=== PATIENT | female | born 1970 | race Caucasian/White ===

== ENCOUNTER 2018-07-28 17:45 | Emergency (ER) | payer OTHER ==
[2018-07-28 17:59] VITALS: TEMP 98.6
[2018-07-28] MEDS ORDERED: KETOROLAC TROMETHAMINE INJ 60 MG/2 ML VIAL IM ONE (18:12)
[2018-07-28] MEDS ORDERED: CYCLOBENZAPRINE HCL 10 MG TAB PO ONE (18:12)
--- NOTE | 2018-07-28 19:16 | ED.PDOC ---
History of Present Illness - General Chief Complaint: General Stated Complaint: pain in arms,tailbone and down both legs Time Seen by Provider: 07/28/18 18:11 Source: patient, family Exam Limitations: no limitations - History of Present Illness Initial Comments: patient comes in today for 1 day history of worsening back pain radiating down with weakness to both arms and legs Patient has no last of loss of bowel or bladder continence. She's had no fever or chills. Patient states she's hurt for years and has tried physical therapy and chiropractic treatment with only minimal improvement. However, the pain today was worse than her baseline and so she came in to see if anything else was going on. She denies any dysuria, fever, chills. She has chronic cough and underlying COPD from smoking. Patient has no nausea or vomiting. Timing/Duration: 24 hours Severity: severe Improving Factors: nothing Worsening Factors: movement Associated Symptoms: denies symptoms Allergies/Adverse Reactions: Allergies Sulfa Antibiotics Allergy (Unknown, Verified 07/28/18 17:56) Home Medications: Ambulatory Orders Cyclobenzaprine HCl [Flexeril] 10 mg PO TID #15 tab 07/28/18 Ibuprofen [Ibu] 800 mg PO TID PRN #20 tab 07/28/18 Review of Systems - Review of Systems Constitutional: States: no symptoms reported. Denies: chills, fever EENTM: States: no symptoms reported. Denies: blurred vision, ear pain, nose pain Respiratory: States: no symptoms reported. Denies: cough, short of breath Cardiology: States: no symptoms reported. Denies: chest pain, palpitations Gastrointestinal/Abdominal: States: no symptoms reported. Denies: abdominal pain, diarrhea Past Medical History (General) - Patient Medical History Hx Stroke: No Hx Congestive Heart Failure: No Hx Diabetes: No Surgical History: cholecystectomy, Hysterectomy - Vaccination History Hx Influenza Vaccination: No Hx Pneumococcal Vaccination: No - Social History Hx Tobacco Use: Yes Family Medical History - Family History Mother Family History: No Known Living Status: Still Living Physical Exam - Physical Exam General Appearance: Alert, Comfortable, No apparent distress Eye Exam: bilateral normal Ears, Nose, Throat: hearing grossly normal, normal ENT inspection, normal pharynx Neck: non-tender, full range of motion, supple, normal inspection Respiratory: chest non-tender, wheezing - occasional wheezing Cardiovascular/Chest: normal peripheral pulses, regular rate, rhythm, no edema, no murmur Peripheral Pulses: radial,right: 2+, radial,left: 2+ Gastrointestinal/Abdominal: normal bowel sounds, non tender, soft Back Exam: normal inspection, no CVA tenderness, muscle spasm - bilateral LS area paraspinal with L>R Extremity: normal range of motion, non-tender, normal inspection Neurologic: no motor/sensory deficits, alert, oriented x 3 DTR: 2+: Triceps, left, Triceps, right, Patellar, left, Patellar, right Progress - Progress Progress: 07/28/18 20:39 discussed with patient results of CT including kidney stone that does not appear to be causative of the pain but is present and diffuse vascular disease. Also discussed at length need to stop smoking and change diet before vascular event occurs. - Results/Orders Results/Orders: Laboratory Results WBC 9.0 K/mm3 (4.8-10.8) 07/28/18 18: RBC 4.74 M/mm3 (4.20-5.40) 07/28/18 18: Hgb 14.6 gm/dL (12.0-16.0) 07/28/18 18: Hct 42.8 % (36.0-47.0) 07/28/18 18: MCV 90.4 fl (81.0-99.0) 07/28/18 18: MCH 30.8 pg (27.0-31.0) 07/28/18 18: MCHC 34.1 g/dL (33.0-37.0) 07/28/18 18: RDW 13.3 % (11.5-14.5) 07/28/18 18: Plt Count 298 K/mm3 (130-400) 07/28/18 18: MPV 7.5 fl (7.40-10.4) 07/28/18 18:19 Absolute Neuts (auto) 5.40 K/uL (1.8-6.8) 07/28/18 18:19 Absolute Lymphs (auto) 2.40 K/uL (1.0-3.4) 07/28/18 18: Absolute Monos (auto) 0.60 K/uL (0.2-0.8) 07/28/18 18:19 Absolute Eos (auto) 0.50 K/uL (0.0-0.4) H 07/28/18 18:19 Absolute Basos (auto) 0.10 K/uL (0.0-0.1) 07/28/18 18:19 Neutrophils % 60.5 % (42.0-78.0) 07/28/18 18:19 Lymphocytes % 26.5 % (20.0-50.0) 07/28/18 18:19 Monocytes % 6.9 % (2.0-9.0) 07/28/18 18:19 Eosinophils % 5.1 % (1.0-5.0) H 07/28/18 18:19 Basophils % 1.0 % (0.0-2.0) 07/28/18 18:19 Sodium 140 mmol/L (135-145) 07/28/18 18:19 Potassium 3.7 mmol/L (3.6-5.0) 07/28/18 18:19 Chloride 111 mmol/L (101-111) 07/28/18 18:19 Carbon Dioxide 22 mmol/L (21-31) 07/28/18 18:19 Anion Gap 10.7 (12-18) L 07/28/18 18:19 BUN 21 mg/dL (7-18) H 07/28/18 18:19 Creatinine 1.05 mg/dL (0.6-1.3) 07/28/18 18:19 BUN/Creatinine Ratio 20.0 (10-20) 07/28/18 18:19 Random Glucose 102 mg/dL (70-105) 07/28/18 18:19 Serum Osmolality 282.6 mOsm/L (275-295) 07/28/18 18:19 Calcium 8.4 mg/dL (8.4-10.2) 07/28/18 18:19 Total Bilirubin 0.2 mg/dL (0.2-1.0) 07/28/18 18:19 AST 18 IU/L (10-42) 07/28/18 18:19 ALT 16 IU/L (10-60) 07/28/18 18:19 Alkaline Phosphatase 64 IU/L (42-121) 07/28/18 18:19 Serum Total Protein 6.7 gm/dL (6.4-8.2) 07/28/18 18:19 Albumin 3.0 g/dl (3.2-5.5) L 07/28/18 18:19 Globulin 3.7 gm/dL (2.3-3.5) H 07/28/18 18:19 Albumin/Globulin Ratio 0.8 (1.1-1.9) L 07/28/18 18:19 Urine Color Yellow (Yellow) 07/28/18 18:30 Urine Appearance Clear (Clear) 07/28/18 18:30 Urine pH 7.0 (4.5-7.8) 07/28/18 18:30 Ur Specific [place] 1.025 (1.005-1.030) 07/28/18 18:30 Urine Protein >=300 mg/dL H 07/28/18 18:30 Urine Glucose (UA) Negative mg/dL (Negative) 07/28/18 18:30 Urine Ketones Negative mg/dL (NEGATIVE) 07/28/18 18:30 Urine Blood Moderate (Negative) H 07/28/18 18:30 Urine Nitrite Negative 07/28/18 18:30 Urine Bilirubin Negative (NEGATIVE) 07/28/18 18:30 Urine Urobilinogen 0.2 mg/dL (0.2-1.0) 07/28/18 18:30 Ur Leukocyte Esterase Negative (Negative) 07/28/18 18:30 Urine RBC 5-10 /hpf H 07/28/18 18:30 Urine WBC 1-3 /hpf 07/28/18 18:30 Ur Epithelial Cells 0-1 /hpf 07/28/18 18:30 Amorphous Sediment 1+ 07/28/18 18:30 Urine Bacteria 0 07/28/18 18:30 Patient Name: ABAD TOMLIN Gender: Female Date of : 1970 Referring Physician: KARRIE PUENTES Organization: [facility] Accession Number: [id number] Requested Date: July 28, 2018 19:13 Report Status: Final Requested Procedure: 1 Procedure Description: Abdoment/Pelvis w/o Contrast Modality: CT Findings Reporting MD: Mat Brock Fellow MD: Not available Dictation Time: Route Inspector: Not available Corrugator Date: NONCONTRAST ABDOMEN AND PELVIC CT EXAMINATION. HISTORY: Hematuria. Back pain. Remote hysterectomy. COMPARISONS: No comparisons are available. PROCEDURE: Using helical technique, thin section axial images were performed through the abdomen and pelvis without the administration of intravenous or oral contrast material. FINDINGS: 3 mm nonobstructing left upper renal collecting system stone. The adrenal glands, kidneys, renal collecting systems, ureters and urinary bladder are otherwise grossly normal on this noncontrast examination. Mild descending colon and sigmoid colon diverticulosis without evidence of diverticulitis. The appendix is clearly visualized and appears normal. No calcified appendicolith. No evidence of appendicitis, inflammatory bowel disease, bowel obstruction, extraluminal bowel gas or retroperitoneal hemorrhage. No ascites, free pelvic fluid or evidence of intra-abdominal abscess on this noncontrast examination. Remote cholecystectomy. The liver, spleen, pancreas, stomach and duodenum are grossly normal on this noncontrast examination. Mild to moderate atherosclerotic calcification in the abdominal aorta and iliac arteries without aneurysm. Greatest AP diameter of the infrarenal abdominal aorta measures 1.8 cm. Moderate degenerative disease at the L4/L5 level without spondylolisthesis or facet joint dislocation. Suspect mild symmetric degenerative spinal canal stenosis at the L4/L5 level. Bones are otherwise normal for age. Lung bases are normal. IMPRESSION: 1. Calcified nonobstructing 3 mm left renal collecting system stone. No evidence of urinary system obstruction or pyelonephritis on this noncontrast examination. 2. Mild descending colon and sigmoid colon diverticulosis without diverticulitis. The appendix is clearly visualized and is normal. 3. No evidence of inflammatory bowel disease, bowel obstruction, [facility] [address] [place] [address], [address] [place] [address] T [phone] F [phone] [email or web address] - Report exported on July 28, 2018 20:36:12 -[id number] - Page 2 of 2 extraluminal bowel gas or intra-abdominal abscess. 4. Degenerative disease at the L4/L5 level with evidence of mild symmetric degenerative spinal canal stenosis. Bones appear otherwise normal for age. If clinical concern persists, post intravenous contrast and post oral contrast abdomen and pelvic CT examination should be performed for further evaluation. This exam was performed according to our departmental dose-optimization program, which includes automated exposure control, adjustment of the mA and/or kV according to patient size and/or use of iterative reconstruction technique. Electronically signed by: Mat Brock MD Departure - Departure Clinical Impression: Low back pain Qualifiers: Chronicity: chronic Back pain laterality: bilateral Sciatica presence: without sciatica Qualified Code(s): M54.5 - Low back pain; G89.29 - Other chronic pain Disposition: Discharge to Home or Self Care Condition: Good Departure Forms: ED Discharge - Pt. Copy, Patient Portal Self Enrollment Prescriptions: Cyclobenzaprine HCl [Flexeril] 10 mg PO TID #15 tab Ibuprofen [Ibu] 800 mg PO TID PRN #20 tab PRN Reason: Pain Home Medications: Ambulatory Orders Cyclobenzaprine HCl [Flexeril] 10 mg PO TID #15 tab 07/28/18 Ibuprofen [Ibu] 800 mg PO TID PRN #20 tab 07/28/18 Additional Instructions: work excuse for next 48 hours. Follow up with PCP on Tuesday to discuss PT vs Pain consult or chiropractor referral. RTER for increase in pain, change in sensation/weakness.
--- NOTE | 2018-07-28 20:17 | CT ---
NONCONTRAST ABDOMEN AND PELVIC CT EXAMINATION. HISTORY: Hematuria. Back pain. Remote hysterectomy. COMPARISONS: No comparisons are available. PROCEDURE: Using helical technique, thin section axial images were performed through the abdomen and pelvis without the administration of intravenous or oral contrast material. FINDINGS: 3 mm nonobstructing left upper renal collecting system stone. The adrenal glands, kidneys, renal collecting systems, ureters and urinary bladder are otherwise grossly normal on this noncontrast examination. Mild descending colon and sigmoid colon diverticulosis without evidence of diverticulitis. The appendix is clearly visualized and appears normal. No calcified appendicolith. No evidence of appendicitis, inflammatory bowel disease, bowel obstruction, extraluminal bowel gas or retroperitoneal hemorrhage. No ascites, free pelvic fluid or evidence of intra-abdominal abscess on this noncontrast examination. Remote cholecystectomy. The liver, spleen, pancreas, stomach and duodenum are grossly normal on this noncontrast examination. Mild to moderate atherosclerotic calcification in the abdominal aorta and iliac arteries without aneurysm. Greatest AP diameter of the infrarenal abdominal aorta measures 1.8 cm. Moderate degenerative disease at the L4/L5 level without spondylolisthesis or facet joint dislocation. Suspect mild symmetric degenerative spinal canal stenosis at the L4/L5 level. Bones are otherwise normal for age. Lung bases are normal. IMPRESSION: 1. Calcified nonobstructing 3 mm left renal collecting system stone. No evidence of urinary system obstruction or pyelonephritis on this noncontrast examination. 2. Mild descending colon and sigmoid colon diverticulosis without diverticulitis. The appendix is clearly visualized and is normal. 3. No evidence of inflammatory bowel disease, bowel obstruction, extraluminal bowel gas or intra-abdominal abscess. 4. Degenerative disease at the L4/L5 level with evidence of mild symmetric degenerative spinal canal stenosis. Bones appear otherwise normal for age. If clinical concern persists, post intravenous contrast and post oral contrast abdomen and pelvic CT examination should be performed for further evaluation. This exam was performed according to our departmental dose-optimization program, which includes automated exposure control, adjustment of the mA and/or kV according to patient size and/or use of iterative reconstruction technique. Electronically signed by: Mat Brock MD 07/28/2018 8:15 PM CDT
[2018-07-28 20:43] VITALS: BP 149/94; O2SAT 99
== END 2018-07-28 20:45 | disposition home or self-care (01) ==
LOC: ER 17:45
DX: M54.5 Low back pain (principal); G89.29 Other chronic pain; M47.817 Spondylosis without myelopathy or radiculopathy, lumbosacral region; N20.0 Calculus of kidney; K57.30 Diverticulosis of large intestine without perforation or abscess without bleeding; J44.9 Chronic obstructive pulmonary disease, unspecified; Z90.49 Acquired absence of other specified parts of digestive tract; Z79.899 Other long term (current) drug therapy; Z88.2 Allergy status to sulfonamides; Z87.891 Personal history of nicotine dependence
CPT/HCPCS: 36415; 74176; 80053; 81001; 85025; 87502; J1885

== ENCOUNTER 2018-08-08 19:46 | Emergency (ER) | payer OTHER ==
[2018-08-08] MEDS ORDERED: SODIUM CHLORIDE 0.9% 1000ML 1,000 ML IVS ONE (20:35)
[2018-08-08] MEDS ORDERED: ONDANSETRON INJ 4 MG/2 ML VIAL IV ONE (20:35)
--- NOTE | 2018-08-08 20:39 | ED.PDOC ---
History of Present Illness - General Chief Complaint: General Stated Complaint: feels "blah" weak Time Seen by Provider: 08/08/18 20:22 Source: patient Exam Limitations: no limitations - History of Present Illness Initial Comments: Pt began feeling dizzy, lightheaded, and nauseated around 6 pm today Timing/Duration: 1-3 hours, constant Severity: moderate Improving Factors: nothing Worsening Factors: movement Associated Symptoms: nausea/vomiting, weakness Allergies/Adverse Reactions: Allergies Sulfa Antibiotics Allergy (Unknown, Verified 07/28/18 17:56) Home Medications: Ambulatory Orders Cyclobenzaprine HCl [Flexeril] 10 mg PO TID #15 tab 07/28/18 Ibuprofen [Ibu] 800 mg PO TID PRN #20 tab 07/28/18 Ondansetron Odt [Zofran ODT] 4 mg PO Q6HR PRN #15 tab 08/08/18 Review of Systems - Review of Systems Constitutional: States: fever, malaise, weakness EENTM: States: no symptoms reported Respiratory: States: no symptoms reported Cardiology: States: no symptoms reported Gastrointestinal/Abdominal: States: diarrhea, nausea. Denies: abdominal pain, vomiting Genitourinary: Denies: dysuria, frequency Musculoskeletal: States: back pain - Chronic back pain Skin: States: no symptoms reported Neurological: States: no symptoms reported Endocrine: States: no symptoms reported Hematologic/Lymphatic: States: no symptoms reported Past Medical History (General) - Patient Medical History Hx Seizures: No Hx Stroke: No Hx Asthma: No Hx of COPD: Yes Hx Cardiac Disorders: No Hx Congestive Heart Failure: No Hx Pacemaker: No Hx Hypertension: No Hx Thyroid Disease: No Hx Diabetes: No Hx Gastroesophageal Reflux: Yes Hx Renal Disease: No Hx Cancer: Yes - cervical ca 25 years ago Hx of HIV: No Hx Hepatitis C: No Hx MRSA: No Surgical History: cholecystectomy, Hysterectomy - Vaccination History Hx Tetanus, Diphtheria Vaccination: No Hx Influenza Vaccination: No Hx Pneumococcal Vaccination: No Immunizations Up to Date: No - Social History Hx Tobacco Use: Yes Hx Chewing Tobacco Use: No Hx Alcohol Use: No Hx Substance Use: No Hx Substance Use Treatment: No Hx Depression: No Feels Threatened In Home Enviroment: No Feels Threatened In a Relationship: No Hx Physical Abuse: No Hx Emotional Abuse: No Hx Suspected Abuse: No - Activities of Daily Living Hospice Agency (if applicable):: None - Female History Patient is a Female of Child Bearing Age (10 -59 yrs old): No - hystorectomy - Triage Comment ED Triage Comment: pt AAOX4, and is able to communicate with staff and make needs known, Family Medical History - Family History Mother Family History: Unknown Living Status: Hx Family;Other: kidney ca Physical Exam - Physical Exam General Appearance: Alert, Lethargic Eye Exam: bilateral normal Ears, Nose, Throat: hearing grossly normal, normal ENT inspection Neck: non-tender, full range of motion, supple Respiratory: lungs clear, normal breath sounds Cardiovascular/Chest: normal peripheral pulses, regular rate, rhythm Gastrointestinal/Abdominal: normal bowel sounds, non tender, soft Back Exam: normal inspection, no CVA tenderness Extremity: normal range of motion, non-tender, normal inspection, no pedal edema Neurologic: alert, normal mood/affect, oriented x 3 Skin Exam: normal color, warm/dry Lymphatic: no adenopathy Progress - EKG/XRAY/CT CT Ordered: No Departure - Departure Clinical Impression: Orthostasis, Vasovagal symptom Disposition: Discharge to Home or Self Care Departure Forms: ED Discharge - Pt. Copy, Patient Portal Self Enrollment Referrals: Tami Sarkar NP [Primary Care Provider] - 1-2 Weeks Prescriptions: Ondansetron Odt [Zofran ODT] 4 mg PO Q6HR PRN #15 tab PRN Reason: Nausea Home Medications: Ambulatory Orders Cyclobenzaprine HCl [Flexeril] 10 mg PO TID #15 tab 07/28/18 Ibuprofen [Ibu] 800 mg PO TID PRN #20 tab 07/28/18 Ondansetron Odt [Zofran ODT] 4 mg PO Q6HR PRN #15 tab 08/08/18
[2018-08-08 22:03] VITALS: BP 119/67; TEMP 97.9; O2SAT 98
== END 2018-08-08 22:03 | disposition home or self-care (01) ==
LOC: ER 19:46
DX: I95.1 Orthostatic hypotension (principal); R11.2 Nausea with vomiting, unspecified; J44.9 Chronic obstructive pulmonary disease, unspecified; K21.9 Gastro-esophageal reflux disease without esophagitis; Z85.41 Personal history of malignant neoplasm of cervix uteri; Z87.891 Personal history of nicotine dependence; Z88.2 Allergy status to sulfonamides
CPT/HCPCS: 36416; 80053; 81001; 82948; 85025; J2405; J7030

== ENCOUNTER → 2018-10-19 | Outpatient (CLI) | payer OTHER ==
--- NOTE | 2018-10-19 09:43 | MRI ---
EXAM DESCRIPTION: Knee,Right CLINICAL HISTORY: RT KNEE PAIN COMPARISON: None Available. TECHNIQUE: MRI of the right knee is performed with multiplanar multi sequence imaging, without intravenous contrast. FINDINGS: Bone and joint: No focal bony contusion or acute fracture. Cartilage: Grade 3 chondral fissuring/chondrosis involving the medial knee compartment. Grade I chondromalacia of the lateral knee and patellofemoral compartments Medial meniscus: No displaced meniscal tear. Slight truncation of the anterior horn free edge may represent minimal free edge fraying. Lateral meniscus: Intact Anterior cruciate ligament: Intact Posterior cruciate ligament:Intact Medial collateral ligament:Intact Lateral collateral ligament:Intact Popliteus tendon: Intact Biceps femoris tendon: Intact Iliotibial band: Intact Medial and lateral retinaculum: Intact Extensor mechanism: Distal quadriceps and patellar tendons are intact. Soft tissues: Trace Bonner's cyst. No solid or cystic mass. IMPRESSION: Medial meniscus anterior horn/body mild free edge fraying. No displaced meniscal tear. Medial knee compartment intermediate grade chondromalacia. Electronically signed by: Kurtis Camara DO 10/19/2018 9:42 AM CDT
== END ==
LOC: MRI 08:22
PROVIDERS: ATTEND Nurse Practitioner Family
DX: M94.261 Chondromalacia, right knee (principal)

== ENCOUNTER 2019-09-02 20:50 | Emergency (ER) | payer SELFPAY ==
[2019-09-02 21:12] VITALS: TEMP 99.8
[2019-09-02] MEDS ORDERED: SODIUM CHLORIDE 0.9% 1000ML 1,000 ML IVS ONE (21:33)
[2019-09-02] MEDS ORDERED: SODIUM CHLORIDE 0.9% (FLUSH) 10 ML SYG IV PRN (21:33)
[2019-09-02] MEDS ORDERED: KETOROLAC TROMETHAMINE INJ 30 MG/ML VIAL IV ONE (21:34)
--- NOTE | 2019-09-02 22:09 | CT ---
EXAM: CT Abdomen and Pelvis Without Intravenous Contrast CLINICAL HISTORY: The patient is 49 years old and is Female; left flank pain. TECHNIQUE: Axial computed tomography images of the abdomen and pelvis without intravenous contrast. Sagittal and coronal reformatted images were created and reviewed. This CT exam was performed using one or more of the following dose reduction techniques: automated exposure control, adjustment of the mA and/or kV according to patient size, and/or use of iterative reconstruction technique. COMPARISON: No relevant prior studies available. FINDINGS: LUNG BASES: Unremarkable. No mass. No consolidation. ABDOMEN: LIVER: The liver is enlarged. Fatty infiltration at the falciform is present. GALLBLADDER AND BILE DUCTS: Surgical clips are present in the right upper quadrant, consistent with previous cholecystectomy. PANCREAS: Unremarkable. No ductal dilation. SPLEEN: Unremarkable. ADRENALS: Unremarkable. No mass. KIDNEYS AND URETERS: Mild left hydronephrosis and proximal hydroureter is present secondary to a 4 mm proximal left ureteral calculus. Edema of the left kidney with moderate perinephric and periureteral stranding is noted. The right kidney is normal. STOMACH AND BOWEL: The stomach is minimally distended with food contents. The small bowel is normal in caliber. Stool is present throughout colon. Scattered colonic diverticula are noted without surrounding inflammation. There is no mucosal thickening or evidence of bowel obstruction. PELVIS: APPENDIX: The appendix is normal in caliber without surrounding inflammation. BLADDER: The bladder is incompletely distended. No stones. REPRODUCTIVE: The patient is status post hysterectomy. ABDOMEN and PELVIS: INTRAPERITONEAL SPACE: Unremarkable. No free air. No significant fluid collection. BONES/JOINTS: Minimal degenerative change at L4-L5 is present. SOFT TISSUES: The soft tissues are normal. VASCULATURE: Atherosclerosis of the vasculature is present. No abdominal aortic aneurysm. LYMPH NODES: Unremarkable. No enlarged lymph nodes. IMPRESSION: Mild left hydronephrosis and proximal hydroureter is present secondary to a 4 mm proximal left ureteral calculus. Electronically signed by: Maggie Bonilla MD 09/02/2019 10:07 PM CDT
[2019-09-02] MEDS ORDERED: ACETAMINOPHEN W/COD #3 TAB 1 EA TAB PO ONE (23:00)
[2019-09-02] MEDS ORDERED: CIPROFLOXACIN 500 MG TAB PO ONE (23:00)
[2019-09-02] MEDS ORDERED: ONDANSETRON INJ 4 MG/2 ML VIAL IV ONE (23:01)
--- NOTE | 2019-09-02 23:08 | ED.PDOC ---
History of Present Illness - General Chief Complaint: General Stated Complaint: back and stomach pain Time Seen by Provider: 09/02/19 21:32 Source: patient, RN notes reviewed, Vital Signs reviewed, family - Daughter Exam Limitations: no limitations - History of Present Illness Initial Comments: Patient is a 49-year-old white female who started having left flank pain radiating to her abdomen this morning. Pain was waxing and waning in nature. It was moderate in intensity. Nothing seemed to make it better or worse. Timing/Duration: other - 12 hours Severity: moderate Improving Factors: nothing Worsening Factors: nothing Associated Symptoms: nausea/vomiting - Nausea only Allergies/Adverse Reactions: Allergies Sulfa Antibiotics Allergy (Unknown, Verified 07/28/18 17:56) Home Medications: Ambulatory Orders Cyclobenzaprine HCl [Flexeril] 10 mg PO TID #15 tab 07/28/18 Ibuprofen [Ibu] 800 mg PO TID PRN #20 tab 07/28/18 Ondansetron Odt [Zofran ODT] 4 mg PO Q6HR PRN #15 tab 08/08/18 Acetaminophen W/ Codeine [Tylenol W/ CODEINE #3] 1 tablet PO Q6H #16 09/03/19 Ciprofloxacin 500 mg PO BID #20 ml 09/03/19 Review of Systems - Review of Systems Constitutional: States: no symptoms reported, see HPI. Denies: chills, fever, weakness EENTM: States: no symptoms reported. Denies: eye pain, double vision, throat pain, throat swelling Respiratory: States: no symptoms reported. Denies: cough, short of breath, stridor, wheezing Cardiology: States: no symptoms reported. Denies: chest pain, palpitations, syncope Gastrointestinal/Abdominal: States: see HPI, abdominal pain, nausea. Denies: vomiting Genitourinary: States: no symptoms reported. Denies: discharge, dysuria, frequency Musculoskeletal: States: see HPI, back pain. Denies: joint pain, muscle pain, neck pain Skin: States: no symptoms reported. Denies: change in color, rash Neurological: States: no symptoms reported, tingling. Denies: tremors, weakness Endocrine: States: no symptoms reported Hematologic/Lymphatic: States: no symptoms reported All other Systems: Reviewed and Negative Past Medical History (General) - Patient Medical History Hx Seizures: No Hx Stroke: No Hx Asthma: No Hx of COPD: Yes Hx Cardiac Disorders: No Hx Congestive Heart Failure: No Hx Pacemaker: No Hx Hypertension: No Hx Thyroid Disease: Yes Hx Diabetes: No Hx Gastroesophageal Reflux: Yes Hx Renal Disease: No Hx Cancer: Yes - cervical Hx of HIV: No Hx Hepatitis C: No Hx MRSA: No Surgical History: cholecystectomy, Hysterectomy - Vaccination History Hx Tetanus, Diphtheria Vaccination: No Hx Influenza Vaccination: No Hx Pneumococcal Vaccination: No - Social History Hx Tobacco Use: Yes Hx Chewing Tobacco Use: No Hx Alcohol Use: Yes Hx Substance Use: No Hx Substance Use Treatment: No Hx Depression: No Hx Physical Abuse: No Hx Emotional Abuse: No Hx Suspected Abuse: No Family Medical History - Family History Mother Family History: Unknown Living Status: Hx Family;Other: kidney ca Physical Exam - Physical Exam General Appearance: Alert, Anxious, Obvious distress, Unkempt, Well Developed, Well Hydrated, Well Nourished Eye Exam: bilateral normal Ears, Nose, Throat: hearing grossly normal, normal ENT inspection, normal pharynx Neck: non-tender, full range of motion, supple, normal inspection Respiratory: chest non-tender, lungs clear, normal breath sounds, no respiratory distress, no accessory muscle use, respiratory distress Cardiovascular/Chest: normal peripheral pulses, regular rate, rhythm, no edema, no gallop, no JVD, no murmur Peripheral Pulses: radial,right: 2+, radial,left: 2+ Gastrointestinal/Abdominal: normal bowel sounds, non tender, soft Back Exam: no vertebral tenderness, CVA tenderness (R) Extremity: normal range of motion, non-tender, normal inspection, no pedal edema Neurologic: zmt operator II-XII nml as tested, no motor/sensory deficits, alert, normal mood/affect, oriented x 3 Skin Exam: normal color, warm/dry Lymphatic: no adenopathy Progress - Progress Progress: Differential diagnosis: Pyelonephritis, thoracic back strain, UTI, kidney stone among others. 09/02/19 23:53 Patient's pain has resolved after the IV Toradol. Patient has been given 1 Tylenol 3 which is also helped control the pain. Patient noted to have a mild UTI and was started on Cipro p.o. Patient's blood pressure has been good throughout. No signs of sepsis. Patient with a small 4 mm stone which should pass, but it is located in the proximal ureter. Plan on discharge home on Cipro and Tylenol 3 with follow-up with PCP for referral to nephrology. I discussed this plan of care with the patient she voices understanding and agreement with the plan of care. Patient is been given strong warnings to return to ED for worsening pain, fever, dizziness, shortness of breath or for any other reason. Skip Brandon M.D. #[id number] - Results/Orders Results/Orders: 09/02/19 20:58 Urine Culture Stat 09/02/19 21:33 Sodium Chloride 0.9% (Flush) [Saline Flush Syringe] 10 ml IV PRN PRN 09/02/19 21:34 IV Care:Saline Lock per Protoc QSHIFT Laboratory Results - last 24 hr 09/02/19 09/02/19 09/02/19 20:58 22:05 22:05 WBC 13.2 H RBC 4.83 Hgb 14.6 Hct 43.2 MCV 89.5 MCH 30.2 MCHC 33.8 RDW 13.7 Plt Count 310 MPV 7.9 Absolute Neuts (auto) 10.90 H Absolute Lymphs (auto) 1.10 Absolute Monos (auto) 1.00 H Absolute Eos (auto) 0.20 Absolute Basos (auto) 0.10 Neutrophils % 82.8 H Lymphocytes % 8.0 L Monocytes % 7.2 Eosinophils % 1.5 Basophils % 0.5 Sodium 139 Potassium 3.6 Chloride 106 Carbon Dioxide 24 Anion Gap 12.6 BUN 15 Creatinine 1.06 BUN/Creatinine Ratio 14.2 Random Glucose 106 H Serum Osmolality 278.8 Calcium 8.7 Total Bilirubin 0.4 Direct Bilirubin 0.1 Indirect Bilirubin 0.3 AST 46 H ALT 55 Alkaline Phosphatase 78 Serum Total Protein 7.1 Albumin 3.3 Lipase 24 Urine Color Yellow Urine Appearance Cloudy Urine pH 7.0 Ur Specific [place] 1.025 Urine Protein >=300 H Urine Glucose (UA) Negative Urine Ketones Negative Urine Blood Moderate H Urine Nitrite Positive H Urine Bilirubin Negative Urine Urobilinogen 0.2 Ur Leukocyte Esterase Small H Urine RBC 5-10 H Urine WBC >50 H Ur Epithelial Cells 1-3 Amorphous Sediment 2+ Urine Bacteria 1+ EXAM: CT Abdomen and Pelvis Without Intravenous Contrast CLINICAL HISTORY: The patient is 49 years old and is Female; left flank pain. TECHNIQUE: Axial computed tomography images of the abdomen and pelvis without intravenous contrast. Sagittal and coronal reformatted images were created and reviewed. This CT exam was performed using one or more of the following dose reduction techniques: automated exposure control, adjustment of the mA and/or kV according to patient size, and/or use of iterative reconstruction technique. COMPARISON: No relevant prior studies available. FINDINGS: LUNG BASES: Unremarkable. No mass. No consolidation. ABDOMEN: LIVER: The liver is enlarged. Fatty infiltration at the falciform is present. GALLBLADDER AND BILE DUCTS: Surgical clips are present in the right upper quadrant, consistent with previous cholecystectomy. PANCREAS: Unremarkable. No ductal dilation. SPLEEN: Unremarkable. ADRENALS: Unremarkable. No mass. KIDNEYS AND URETERS: Mild left hydronephrosis and proximal hydroureter is present secondary to a 4 mm proximal left ureteral calculus. Edema of the left kidney with moderate perinephric and periureteral stranding is noted. The right kidney is normal. STOMACH AND BOWEL: The stomach is minimally distended with food contents. The small bowel is normal in caliber. Stool is present throughout colon. Scattered colonic diverticula are noted without surrounding inflammation. There is no mucosal thickening or evidence of bowel obstruction. PELVIS: APPENDIX: The appendix is normal in caliber without surrounding inflammation. BLADDER: The bladder is incompletely distended. No stones. REPRODUCTIVE: The patient is status post hysterectomy. ABDOMEN and PELVIS: INTRAPERITONEAL SPACE: Unremarkable. No free air. No significant fluid collection. BONES/JOINTS: Minimal degenerative change at L4-L5 is present. SOFT TISSUES: The soft tissues are normal. VASCULATURE: Atherosclerosis of the vasculature is present. No abdominal aortic aneurysm. LYMPH NODES: Unremarkable. No enlarged lymph nodes. IMPRESSION: Mild left hydronephrosis and proximal hydroureter is present secondary to a 4 mm proximal left ureteral calculus. Electronically signed by: Maggie Bonilla MD 09/02/2019 10:07 PM Departure - Departure Clinical Impression: Ureterolithiasis, Hydroureter Urinary tract infection Qualifiers: Urinary tract infection type: acute cystitis Hematuria presence: without hematuria Qualified Code(s): N30.00 - Acute cystitis without hematuria Time of Disposition: 23:56 Disposition: Discharge to Home or Self Care Condition: Good Departure Forms: ED Discharge - Pt. Copy, Patient Portal Self Enrollment Instructions: Urinary Tract Infection, Adult (DC), Kidney Stones (DC) Diet: resume usual diet Activity: increase activity as tolerated Referrals: GHAZAL TREVINO MD [Referring] - 1-2 Days Benito Germain MD [Active Staff] - 1-5 Days Prescriptions: Acetaminophen W/ Codeine [Tylenol W/ CODEINE #3] 1 tablet PO Q6H #16 Ciprofloxacin 500 mg PO BID #20 ml Home Medications: Ambulatory Orders Cyclobenzaprine HCl [Flexeril] 10 mg PO TID #15 tab 07/28/18 Ibuprofen [Ibu] 800 mg PO TID PRN #20 tab 07/28/18 Ondansetron Odt [Zofran ODT] 4 mg PO Q6HR PRN #15 tab 08/08/18 Acetaminophen W/ Codeine [Tylenol W/ CODEINE #3] 1 tablet PO Q6H #16 09/03/19 Ciprofloxacin 500 mg PO BID #20 ml 09/03/19
[2019-09-03 00:11] VITALS: BP 132/78; O2SAT 96
== END 2019-09-03 00:21 | disposition home or self-care (01) ==
LOC: ER 20:50
DX: N20.1 Calculus of ureter (principal); N13.4 Hydroureter; N30.00 Acute cystitis without hematuria; J44.9 Chronic obstructive pulmonary disease, unspecified; R11.2 Nausea with vomiting, unspecified
CPT/HCPCS: 74176; 80048; 80076; 81001; 83690; 85025; 87086; A4216; J1885; J2405; J7030

== ENCOUNTER 2020-04-08 14:13 | Emergency (ER) | payer BC ==
--- NOTE | 2020-04-08 15:20 | RAD ---
EXAM DESCRIPTION: Chest,2 Views CLINICAL HISTORY: Cough COMPARISON: None Available. TECHNIQUE: Two-view radiograph of the chest FINDINGS: Cardiac silhouette shows normal heart size. Pulmonary vascularity is within normal limits. Lungs show no confluent infiltrates. No pleural effusion. No pneumothorax. No acute osseous abnormality. IMPRESSION: No acute cardiopulmonary process. Electronically signed by: Drew Bliss MD 04/08/2020 3:19 PM [facility]
--- NOTE | 2020-04-08 15:34 | ED.PDOC ---
History of Present Illness - General Chief Complaint: General Stated Complaint: cough Time Seen by Provider: 04/08/20 14:50 Source: patient Exam Limitations: no limitations - History of Present Illness Comments: COUGH, NASAL CONGESTION, SORE THROAT X 2 DAYS, NO F/C/ +JERONIMO, NO N/V/D. NO SOB. DENIES KNOWN COVID EXPOSURE OR RECENT TESTING FOR COVID. DENIES ALL HEALTH PROBLEMS, S/P HYST. Cough Quality/Degree: dry cough Possible Cause: no prior episodes Improving Factors: nothing Worsening Factors: nothing Associated Symptoms: chest pain/soreness Respiratory Risk Factors: no cause identified Allergies/Adverse Reactions: Allergies Sulfa Antibiotics Allergy (Unknown, Verified 04/08/20 15:22) Home Medications: Ambulatory Orders Cyclobenzaprine HCl [Flexeril] 10 mg PO TID #15 tab 07/28/18 Ibuprofen [Ibu] 800 mg PO TID PRN #20 tab 07/28/18 Ondansetron Odt [Zofran ODT] 4 mg PO Q6HR PRN #15 tab 08/08/18 Acetaminophen W/ Codeine [Tylenol W/ CODEINE #3] 1 tablet PO Q6H #16 09/03/19 Ciprofloxacin 500 mg PO BID #20 ml 09/03/19 Review of Systems - Review of Systems Constitutional: States: see HPI. Denies: chills, diaphoresis, fever, weakness EENTM: States: see HPI Respiratory: States: see HPI Cardiology: States: no symptoms reported Gastrointestinal/Abdominal: States: no symptoms reported Genitourinary: States: no symptoms reported Musculoskeletal: States: no symptoms reported Skin: States: no symptoms reported Endocrine: States: no symptoms reported Hematologic/Lymphatic: States: no symptoms reported Past Medical History (General) - Patient Medical History Hx Seizures: No Hx Stroke: No Hx Asthma: No Hx of COPD: Yes Hx Cardiac Disorders: No Hx Congestive Heart Failure: No Hx Pacemaker: No Hx Hypertension: No Hx Thyroid Disease: Yes Hx Diabetes: No Hx Gastroesophageal Reflux: Yes Hx Renal Disease: No Hx Cancer: Yes - cervical Hx of HIV: No Hx Hepatitis C: No Hx MRSA: No - Vaccination History Hx Tetanus, Diphtheria Vaccination: No Hx Influenza Vaccination: No Hx Pneumococcal Vaccination: No - Social History Hx Tobacco Use: Yes Hx Chewing Tobacco Use: No Hx Alcohol Use: Yes Hx Substance Use: No Hx Substance Use Treatment: No Hx Depression: No Hx Physical Abuse: No Hx Emotional Abuse: No Hx Suspected Abuse: No Family Medical History - Family History Mother Family History: Unknown Living Status: Hx Family;Other: kidney ca Departure - Departure Clinical Impression: Viral URI Time of Disposition: 16:24 Disposition: Discharge to Home or Self Care Condition: Good Departure Forms: ED Discharge - Pt. Copy, Patient Portal Self Enrollment Instructions: Viral Upper Respiratory Infection, Adult (DC) Home Medications: Ambulatory Orders Cyclobenzaprine HCl [Flexeril] 10 mg PO TID #15 tab 07/28/18 Ibuprofen [Ibu] 800 mg PO TID PRN #20 tab 07/28/18 Ondansetron Odt [Zofran ODT] 4 mg PO Q6HR PRN #15 tab 08/08/18 Acetaminophen W/ Codeine [Tylenol W/ CODEINE #3] 1 tablet PO Q6H #16 09/03/19 Ciprofloxacin 500 mg PO BID #20 ml 09/03/19
[2020-04-08 16:38] VITALS: BP 109/71; TEMP 99.4; O2SAT 97
== END 2020-04-08 16:37 | disposition home or self-care (01) ==
LOC: ER 14:13
DX: J06.9 Acute upper respiratory infection, unspecified (principal); K21.9 Gastro-esophageal reflux disease without esophagitis; E07.9 Disorder of thyroid, unspecified; J44.9 Chronic obstructive pulmonary disease, unspecified; Z20.822 Contact with and (suspected) exposure to COVID-19; Z87.891 Personal history of nicotine dependence; Z85.41 Personal history of malignant neoplasm of cervix uteri; Z79.899 Other long term (current) drug therapy; Z88.2 Allergy status to sulfonamides

== ENCOUNTER → 2020-04-22 | Outpatient (CLI) | payer BC ==
--- NOTE | 2020-04-22 18:35 | RAD ---
EXAM DESCRIPTION: Chest,2 Views CLINICAL HISTORY: DYSPNEA COMPARISON: Previous chest x-ray April 08, 2020 TECHNIQUE: PA/lateral FINDINGS: Mildly prominent central pulmonary arteries. Heart size is normal with normal pulmonary vascularity. No pleural effusion or pneumothorax. Ill-defined increased density in the peripheral left lung base superolateral to the left cardiac apex could be chronic scarring, atelectasis or patchy infiltrate. Similar appearance on previous study. Lungs are otherwise clear with no consolidating infiltrate. Lateral view shows intact sternum and T-spine. Increased density overlies the heart on lateral view suggesting middle lobe or lingular lung disease. IMPRESSION: Patchy infiltrate or partial volume loss in the peripheral left lung base. Electronically signed by: Srini Burks MD 04/22/2020 6:33 PM [employer]
== END ==
LOC: YCFC.O 10:34
PROVIDERS: ATTEND Family Medicine
DX: R06.00 Dyspnea, unspecified (principal); R91.8 Other nonspecific abnormal finding of lung field

== ENCOUNTER → 2020-05-02 | Outpatient (CLI) | payer BC ==
--- NOTE | 2020-05-05 11:33 | MAM ---
EXAM DESCRIPTION: 3D Screening BILATERAL : Digital Mammography. CLINICAL HISTORY: 50 years Female SCREENING . No complaints. Remote family history of breast cancer. Menarche age 13. Childbirth age 23. Menopause age 25. No HRT. Lifetime risk of developing breast cancer (Tyrer-Cuzick model)(%): 12.1. COMPARISON: Baseline study at this facility. No prior reports available. TECHNIQUE: Bilateral CC and MLO projection full-field images, digital tomosynthesis mammographic technique. Bilateral digital 2-D full-field MLO images. CAD available for 2-D images. FINDINGS: The breast parenchymal density pattern is: Scattered areas of fibroglandular density. Bilateral axillary nodes. Solitary microcalcifications. Coarse calcifications. No skin thickening or nipple retraction No focal, stellate mass or density, focal asymmetry , and no suspicious microcalcifications bilaterally. IMPRESSION: Benign exam. BIRAD CATEGORY: 2 BENIGN FINDINGS. RECOMMENDATIONS: FOLLOW UP: Routine digital bilateral mammographic screening, one year interval from April 2020. Written communication explaining the IMPRESSION and follow-up, will be mailed to the patient and referring health care provider According to the [employer], yearly mammograms are recommended starting at age 40 and continuing as long as a woman is in good health. Any breast change noted on a breast self-exam should be reported promptly to the patient's healthcare provider. Breast MRI is recommended for women with an approximately 20-25% or greater lifetime risk of breast cancer, including women with a strong family history of breast or ovarian cancer and women who have been treated for Hodgkin's disease. A negative mammographic report should not delay tissue diagnosis in patients with significant clinical history or physical findings. Extremely dense breast tissue limits the sensitivity of digital mammography. Electronically signed by: Bk Gee MD 05/05/2020 11:31 AM [facility]
== END ==
LOC: MAMMO 09:32
PROVIDERS: ATTEND Family Medicine
DX: Z12.31 Encounter for screening mammogram for malignant neoplasm of breast (principal)

== ENCOUNTER → 2020-05-20 | Outpatient (CLI) | payer BC | LOC: RESP 14:41 | PROVIDERS: ATTEND Family Medicine | DX: J41.0 Simple chronic bronchitis (principal) ==